=== PATIENT | female | born 1940 | race Caucasian/White ===

== ENCOUNTER 2018-09-19 11:49 | Inpatient (IN) | payer OTHER ==
[~2018-09-19] VITALS: Ht 154.9 cm; Wt 51.7 kg
[2018-09-19 12:01] VITALS: BP 98/56
--- NOTE | 2018-09-19 12:25 | NUR ---
ermd at bedside
--- NOTE | 2018-09-19 12:30 | NUR ---
BIB DAUGHTER WITH C/O LEAKING INDWELLING CATHETER X 1 DAY. PT DAUGHTER DENIES V/D/FEVER. PT HAS CHRONIC URINARY RETENTION. BED IN LOW POSTION, DAUGHTER AT BEDSIDE
[2018-09-19 14:22] LABS: APPEARANCE,URINE CLOUDY (CLEAR); BILIRUBIN,URINE NEGATIVE (NEGATIVE); BLOOD, URINE TRACE-L (NEGATIVE); COLOR,URINE YELLOW (YELLOW); LEUKOCYTE ESTERASE ,URINE 3+ (NEGATIVE); NITRITE, URINE NEGATIVE (NEGATIVE); UGLUCOSE TRACE (NEGATIVE)
[2018-09-19 14:30] LABS: RBC,URINE 0-5 /HPF (0-5); WBC,URINE 80-100 /HPF (0-5)
[2018-09-19] MEDS ORDERED: LEVOFLOXACIN 500 MG TAB PO ONE (14:35)
[2018-09-19] MEDS ORDERED: NACL 0.9% 500 ML IV SCH (14:39)
--- NOTE | 2018-09-19 14:48 | NUR ---
Dr. Loja evaluating patient at bedside.
[2018-09-19] MEDS ORDERED: ATOR40TA PO (14:58)
[2018-09-19] MEDS ORDERED: PAX20 PO (14:58)
[2018-09-19] MEDS ORDERED: CEPH250C16 PO (14:58)
[2018-09-19 15:05] LABS: BASOPHILS % (AUTO) 0.5 % (0.0-2.0); EOSINOPHILS # (AUTO) 0.1 K/uL (0-0.4); EOSINOPHILS % (AUTO) 1.8 % (0.0-4.0); HEMATOCRIT 38.3 % (36-48); HEMOGLOBIN 12.1 g/dL (12.0-16.0); LYMPHOCYTES # (AUTO) 2.7 K/uL (2.5-16.5); LYMPHOCYTES % (AUTO) 32.2 % (20.5-51.1); MEAN CORPUSCULAR HEMOGLOBIN 27 pg (27-31); MEAN CORPUSCULAR HGB CONC 32 g/dL (33-37); MEAN CORPUSCULAR VOLUME 86.2 fL (80-94); MONOCYTES # (AUTO) 0.7 K/uL (0.8-1.0); MONOCYTES % (AUTO) 8.8 % (1.7-9.3); NEUTROPHILS # (AUTO) 4.8 K/uL (1.8-7.7); NEUTROPHILS % (AUTO) 56.7 % (42.2-75.2); PLATELET COUNT (AUTO) 334 K/uL (140-450); RED BLOOD CELL COUNT(AUTO) 4.44 MIL/uL (4.20-5.40); RED CELL DISTRIBUTION WIDTH 14.8 % (11.6-13.7); WHITE BLOOD COUNT (AUTO) 8.5 K/uL (4.8-10.8)
[2018-09-19] MEDS ORDERED: DOCUSATE SODIUM 100 MG GELCAP PO PRN (15:05)
[2018-09-19] MEDS ORDERED: ACETAMINOPHEN 325 MG TAB PO PRN (15:05)
[2018-09-19] MEDS ORDERED: ONDANSETRON 4 MG/2 ML VIAL IM/IVP PRN (15:05)
[2018-09-19] MEDS ORDERED: APIX2.5 PO (15:07)
[2018-09-19] MEDS ORDERED: LISI10TA11 PO ×2 (15:07)
[2018-09-19] MEDS ORDERED: LEVO0.1T18 PO (15:07)
[2018-09-19] MEDS ORDERED: METF850T PO (15:07)
[2018-09-19 15:16] LABS: ANION GAP 13.5 (8-16); CHLORIDE 102 mmol/L (98-107); CREATININE 0.8 mg/dL (0.6-1.3); GLUCOSE 109 mg/dL (74-106); POTASSIUM 4.5 mmol/L (3.5-5.1); SODIUM SERUM 138 mmol/L (136-145); UREA NITROGEN, BLOOD 10 mg/dL (7-18)
[2018-09-19] MEDS ORDERED: DEXTROSE 50% 50 ML SYR IVP PRN (15:20)
[2018-09-19 15:22] LABS: ALBUMIN 3.2 g/dL (3.4-5.0); ASPARTATE AMINOTRANSFERASE 15 U/L (15-37); TOTAL BILIRUBIN 0.3 mg/dL (0.0-1.0)
[2018-09-19] MEDS ORDERED: LORA10TA19 PO (15:32)
[2018-09-19] MEDS ORDERED: PIOG15TA84 PO (15:32)
[2018-09-19] MEDS ORDERED: MAGN400T7 PO (15:32)
[2018-09-19] MEDS ORDERED: BACL10TA4 PO (15:32)
[2018-09-19] MEDS ORDERED: MONT10TA35 PO (15:32)
[2018-09-19 16:17] LABS: PROTHROMBIN TIME 9.9 secs (10.8-13.4)
[2018-09-19 16:28] LABS: MAGNESIUM 1.8 mg/dL (1.8-2.4); PHOSPHORUS 3.2 mg/dL (2.5-4.9); THYROID STIMULATING HORMONE 1.72 uIU/mL (0.34-3.74)
--- NOTE | 2018-09-19 16:30 | NUR ---
Patient will be admitted to care of Dr. Siegel. Admited to Med Surg. Will go to room 113 . Belongings list completed. Report to Kamryn alexandra.
--- NOTE | 2018-09-19 16:30 | NUR ---
RECEIVED BEDSIDE REPORT FROM ER NURSE FOR ADMISSION OF PATIENT DX WITH UTI. PT IS APHASIA, UNABLE TO ASSESS MENTAL STATUS. CURRENTLY ON ROOM AIR WITH RIGHT SIDED WEAKNESS EVIDENT. PT CURRENTLY HAS A LEFT WRIST 22 GAUGE IV, PATENT AND ASYMPTOMATIC. PT'S DAUGHTER AT BEDSIDE STATING PT IS PRIMARY SETSWANA SPEAKING, PT ABLE TO FOLLOW COMMANDS WITH EYES AND RESPOND TO MINIMAL BASIC COMMANDS SUCH OPENING MOUTH UPON REPEATED PROMPTING. ALL SAFETY MEASURES IN PLACE. PT MRSA SWAB COLLECTED AND FALL RISK AND ALLERGY BRACELETS PUT ON PT. LOPEZ CATHETER IN PLACE DRAINING CLEAR YELLOW URINE.
[2018-09-19] MEDS: NACL 0.9% 1,000 ML IV SCH (16:34)
[2018-09-19 16:35] VITALS: BP 145/59
--- NOTE | 2018-09-19 16:48 | NUR ---
DAUGHTER AT BEDSIDE STATES SHE NEEDS TO RUN SOME ERRANDS NOW BUT WILL BE BACK SOON. INFORMED DAUGHTER THAT WE NEED TO ASK HER QUESTIONS REGARDING PATIENT'S HEALTH HX FOR ADMISSION ASSESSMENT. DAUGHTER VERBALIZED UNDERSTANDING. WILL OBTAIN ADMISSION ASSESSMENT WHEN DAUGHTER IS BACK. PT IS APHASIC- UNABLE TO OBTAIN HEALTH HX FROM PT.
[2018-09-19] MEDS: BLOOD GLUCOSE MONITORING 1 DEV DEV FS SCH ×2 (16:49→21:09)
[2018-09-19] MEDS: metFORMIN 850 MG TAB PO SCH (16:49)
[2018-09-19] MEDS ORDERED: cefTRIAXone 1,000 MG VIAL ONE (17:57)
--- NOTE | 2018-09-19 18:01 | NUR ---
SCHEDULED ABX ADMINISTERED. DAUGHTER AT BEDSIDE FEEDING DINNER TO PATIENT. ASPIRATION PRECAUTIONS IN PLACE.
--- NOTE | 2018-09-19 18:21 | NUR ---
ASKED FUSION JUNCTURE GRINDER TO BRING SCD'S.
--- NOTE | 2018-09-19 19:18 | NUR ---
ENDORSED POC TO ASL INTERPRETER RN. PT IN STABLE CONDITION.
--- NOTE | 2018-09-19 20:00 | NUR ---
RECEIVED BEDSIDE REPORT FROM LIS STOUT. PT IS AAOX1. APHASIC PRIMARILY [place] SPEAKING. DAUGHTER VONNIE IS AT BEDSIDE. PT IS SMILING AND LAUGHING. IV ON L WRIST 22G IVF INFUSING PER ORDERS. SKIN IS INTACT. LOPEZ PLACED IN ER TODAY 09/19. PT INCONTINENT PT CLEANED AND CHANGED. HX STROKE WITH R SIDED WEAKNESS. SAFETY MEASURES ARE IN PLACE. PLAN OF CARE DISCUSSED WITH PT AND DAUGHTER. CALL LIGHT WITHIN REACH. WILL CONTINUE TO MONITOR.
[2018-09-19] MEDS: INSULIN LISPRO SLIDING SCALE 100 UNITS/ML VIAL SUBQ PRN (20:58)
[2018-09-19] MEDS: BACLOFEN 10 MG TAB PO SCH (21:02)
[2018-09-19] MEDS: APIXABAN 2.5 MG TAB PO SCH (21:09)
--- NOTE | 2018-09-19 21:09 | NUR ---
SCHEDULED MEDICATIONS WERE CRUSHED AND GIVEN WITH APPLE SAUCE. PATIENT TOLERATED WELL. ALL NEEDS MET AT THIS TIME. WILL CONTINUE TO MONITOR.
--- NOTE | 2018-09-19 22:30 | NUR ---
PATIENT IS SLEEPING COMFORTABLY IN BED. DAUGHTER AT BEDSIDE. SAFETY MEASURES ARE IN PLACE.
[2018-09-20] VITALS: BP 127/71
--- NOTE | 2018-09-20 00:03 | NUR ---
VITAL SIGNS ARE WITHIN NORMAL LIMITS. ALL NEEDS MET AT THIS TIME. DAUGHTER IS AT BEDSIDE.
--- NOTE | 2018-09-20 04:00 | NUR ---
PATIENT IS SLEEPING COMFORTABLY IN BED. NO S/S OF DISTRESS. ALL NEEDS MET AT THIS TIME. WILL CONTINUE TO MONITOR.
[2018-09-20] MEDS: BLOOD GLUCOSE MONITORING 1 DEV DEV FS SCH ×4 (05:08→20:04)
--- NOTE | 2018-09-20 05:47 | NUR ---
PATIENT HAS BEEN SCREENED AND CATEGORIZED LOW NUTRITION RISK. PATIENT WILL BE SEEN WITHIN 7 DAYS OF ADMISSION. 09/26/17 SHERRY MOREL MS, RDN
[2018-09-20] MEDS: LEVOTHYROXINE 0.1 MG TAB PO SCH (05:52)
--- NOTE | 2018-09-20 05:52 | NUR ---
SCHEDULED MEDICATION CRUSHED AND GIVEN WITH APPLE SAUCE. PT TOLERATED WELL.
[2018-09-20] MEDS: NACL 0.9% 1,000 ML IV SCH (06:33)
--- NOTE | 2018-09-20 07:28 | NUR ---
GAVE BEDSIDE REPORT TO RACHELLE STOUT. PT ENDORSED IN STABLE CONDITION.
--- NOTE | 2018-09-20 07:45 | NUR ---
RECEIVED HAND OFF REPORT FROM DIRECTOR OF ROOMS NURSE PT IS ASLEEP IN BED. PT APPEARS STABLE AND IN NO APPARENT DISTRESS, ALL SAFETY MEASURES ARE IN PLACE, WILL CONTINUE TO MONITOR.
[2018-09-20 08:00] VITALS: BP 110/49
[2018-09-20 08:59] LABS: BASOPHILS % (AUTO) 0.5 % (0.0-2.0); EOSINOPHILS # (AUTO) 0.2 K/uL (0-0.4); HEMATOCRIT 36.3 % (36-48); HEMOGLOBIN 11.6 g/dL (12.0-16.0); LYMPHOCYTES # (AUTO) 2.7 K/uL (2.5-16.5); LYMPHOCYTES % (AUTO) 34.6 % (20.5-51.1); MEAN CORPUSCULAR HEMOGLOBIN 27 pg (27-31); MEAN CORPUSCULAR HGB CONC 32 g/dL (33-37); MEAN CORPUSCULAR VOLUME 85.2 fL (80-94); MONOCYTES # (AUTO) 0.6 K/uL (0.8-1.0); MONOCYTES % (AUTO) 7.6 % (1.7-9.3); NEUTROPHILS # (AUTO) 4.3 K/uL (1.8-7.7); NEUTROPHILS % (AUTO) 55.3 % (42.2-75.2); PLATELET COUNT (AUTO) 290 K/uL (140-450); RED BLOOD CELL COUNT(AUTO) 4.26 MIL/uL (4.20-5.40); RED CELL DISTRIBUTION WIDTH 14.9 % (11.6-13.7); WHITE BLOOD COUNT (AUTO) 7.8 K/uL (4.8-10.8)
--- NOTE | 2018-09-20 09:05 | NUR ---
ADMINISTERED PT MEDICATIONS CRUSHED AND IN APPLESAUCE. PT IS AWAKE IN BED. PT APPEARS STABLE AND IN NO APPARENT DISTRESS. ALL SAFETY MEASURES ARE IN PLACE. WILL CONTINUE TO ASSESS.
[2018-09-20 09:07] LABS: ANION GAP 13.3 (8-16); CARBON DIOXIDE 26.2 mmol/L (21-32); CHLORIDE 104 mmol/L (98-107); CREATININE 0.7 mg/dL (0.6-1.3); GLUCOSE 136 mg/dL (74-106); POTASSIUM 4.5 mmol/L (3.5-5.1); SODIUM SERUM 139 mmol/L (136-145); UREA NITROGEN, BLOOD 12 mg/dL (7-18)
[2018-09-20 09:15] LABS: MAGNESIUM 1.6 mg/dL (1.8-2.4)
[2018-09-20] MEDS: ATORVASTATIN 20 MG TAB PO SCH (09:20)
[2018-09-20] MEDS: metFORMIN 850 MG TAB PO SCH ×2 (09:20→17:48)
[2018-09-20] MEDS: MONTELUKAST SODIUM 10 MG TAB PO SCH (09:20)
[2018-09-20] MEDS: PARoxetine 20 MG TAB PO SCH (09:21)
[2018-09-20] MEDS: LORATADINE 10 MG TAB PO SCH (09:21)
[2018-09-20] MEDS: LISINOPRIL 10 MG TAB PO SCH (09:21)
[2018-09-20] MEDS: LACTOBACILLUS RHAMNOSUS GG 1 EACH CAP PO SCH (09:22)
[2018-09-20] MEDS: MAGNESIUM OXIDE 400 MG TAB PO SCH (09:22)
[2018-09-20] MEDS: BACLOFEN 10 MG TAB PO SCH ×2 (09:22→19:54)
[2018-09-20] MEDS: APIXABAN 2.5 MG TAB PO SCH ×2 (09:24→20:03)
[2018-09-20 09:41] LABS: CHOL/HDL RATIO 2.3 (1-4.5)
--- NOTE | 2018-09-20 11:15 | NUR ---
FREQUENT ROUNDING PT IS STABLE AND IN NO APPARENT DISTRESS. AT BEDSIDE. ALL SAFETY MEASURES ARE IN PLACE. WILL CONTINUE TO MONITOR,
[2018-09-20] MEDS: MAG SULF 2000 MG/WATER PREMIX 100 ML IV SCH ×2 (12:47→15:47)
[2018-09-20] MEDS: INSULIN LISPRO SLIDING SCALE 100 UNITS/ML VIAL SUBQ PRN ×3 (12:57→20:03)
--- NOTE | 2018-09-20 13:20 | NUR ---
FREQUENT ROUNDING PT IS STABLE AND IN NO APPARENT DISTRESS ALL SAFETY MEASURES ARE IN PLACE WILL CONTINUE TO MONITOR.
[2018-09-20 16:00] VITALS: BP 153/66
--- NOTE | 2018-09-20 16:05 | NUR ---
FREQUENT ROUNDING PT IS STABLE AND IN NO APPARENT DISTRESS ALL SAFETY MEASURES ARE IN PLACE WILL CONTINUE TO MONITOR.
--- NOTE | 2018-09-20 19:20 | NUR ---
ENDORSED PATIENT TO CHURCH COMMUNICATIONS ADMINISTRATOR NURSE PT IS STABLE AND IN NO APPARENT DISTRESS, ALL SAFETY MEASURES ARE IN PLACE.
--- NOTE | 2018-09-20 19:21 | NUR ---
RECEIVED BEDSIDE REPORT FROM RACHELEL STOUT. PT IS AAOX1. APHASIC PRIMARILY [place] SPEAKING. PT IS SMILING AND LAUGHING. IV ON L WRIST 22G IVF INFUSING PER ORDERS. SKIN IS INTACT. LOPEZ IN PLACED DRAINING CLEAR YELLOW URINE. HX STROKE WITH R SIDED WEAKNESS. SAFETY MEASURES ARE IN PLACE. SCD ON. PLAN OF CARE DISCUSSED BED ALARM ON. CALL LIGHT WITHIN REACH. WILL CONTINUE TO MONITOR.
[2018-09-20] MEDS: MELATONIN 3 MG TAB PO SCH (20:03)
--- NOTE | 2018-09-20 20:03 | NUR ---
SCHEDULED MEDICATIONS CRUSHED AND GIVEN WITH APPLE SAUCE. PT TOLERATED WELL. NO S/S OF DISTRESS NOTED. ALL SAFETY MEASURES ARE IN PLACE. WILL CONTINUE TO MONITOR.
--- NOTE | 2018-09-20 22:00 | NUR ---
PATIENT IS SLEEPING COMFORTABLY IN BED. SAFETY MEASURES ARE IN PLACE. WILL CONTINUE TO MONITOR
[2018-09-21] VITALS: BP 125/55
--- NOTE | 2018-09-21 | NUR ---
VITAL SIGNS ARE WITHIN NORMAL LIMITS. PT IS RESTING COMFORTABLY IN BED. NO S/S OF DISTRESS. ALL SAFETY MEASURES ARE IN PLACE. WILL CONTINUE TO MONITOR.
--- NOTE | 2018-09-21 02:15 | NUR ---
PATIENT IS SLEEPING COMFORTABLY IN BED. RESPIRATIONS ARE EQUAL AND UNLABORED. HOB ELEVATED. SAFETY MEASURES ARE IN PLACE. WILL CONTINUE TO MONITOR.
--- NOTE | 2018-09-21 04:30 | NUR ---
LOPEZ CATH CARE PROVIDED. PT WAS CLEANED AND REPOSITION FOR COMFORT NO S/S OF DISTRESS NOTED. SAFETY MEASURES ARE IN PLACE. HOB ELEVATED. WILL CONTINUE TO MONITOR.
[2018-09-21] MEDS: BLOOD GLUCOSE MONITORING 1 DEV DEV FS SCH ×4 (05:07→20:55)
[2018-09-21] MEDS: LEVOTHYROXINE 0.1 MG TAB PO SCH (05:38)
[2018-09-21] MEDS: NACL 0.9% 1,000 ML IV SCH (05:38)
--- NOTE | 2018-09-21 07:30 | NUR ---
GAVE BEDSIDE REPORT TO DAY SHIFT RN. PT ENDORSED IN STABLE CONDITION.
--- NOTE | 2018-09-21 07:31 | NUR ---
RECEIVED BEDSIDE REPORT FROM FOOD MANAGER NURSE. PATIENT IS AWAKE. APHASIC. PATIENT ABLE TO NOD YES AND NO. PATIENT IS BEDBOUND. SKIN INTACT. IV ON L WRIST NS AT 30. CLEAN, DRY AND INTACT. LOPEZ IN PLACE. INCONTINENT. FALL RISK PRECAUTIONS, ASPIRATION PRECAUTIONS IN PLACE. BED IN LOW POSITION. CALL LIGHT WITHIN REACH. WILL CONTINUE TO MONITOR THE PATIENT
[2018-09-21 08:00] VITALS: BP 128/64
--- NOTE | 2018-09-21 08:22 | NUR ---
PATIENT HAS BEEN RE-SCREENED AND CATEGORIZED MODERATE RISK. PT WILL BE SEEN WITHIN 3-5 DAYS FROM ADMISSION. 09/22/18-09/24/[address]
[2018-09-21 08:43] LABS: BASOPHILS # (AUTO) 0.1 K/uL (0.00-0.22); BASOPHILS % (AUTO) 0.8 % (0.0-2.0); EOSINOPHILS # (AUTO) 0.3 K/uL (0-0.4); EOSINOPHILS % (AUTO) 3.6 % (0.0-4.0); HEMATOCRIT 32.8 % (36-48); HEMOGLOBIN 10.6 g/dL (12.0-16.0); LYMPHOCYTES # (AUTO) 2.7 K/uL (2.5-16.5); LYMPHOCYTES % (AUTO) 37.1 % (20.5-51.1); MEAN CORPUSCULAR HEMOGLOBIN 28 pg (27-31); MEAN CORPUSCULAR HGB CONC 32 g/dL (33-37); MEAN CORPUSCULAR VOLUME 84.9 fL (80-94); MONOCYTES # (AUTO) 0.5 K/uL (0.8-1.0); MONOCYTES % (AUTO) 7.2 % (1.7-9.3); NEUTROPHILS # (AUTO) 3.7 K/uL (1.8-7.7); NEUTROPHILS % (AUTO) 51.3 % (42.2-75.2); PLATELET COUNT (AUTO) 300 K/uL (140-450); RED BLOOD CELL COUNT(AUTO) 3.86 MIL/uL (4.20-5.40); RED CELL DISTRIBUTION WIDTH 14.8 % (11.6-13.7); WHITE BLOOD COUNT (AUTO) 7.1 K/uL (4.8-10.8)
[2018-09-21] MEDS: LORATADINE 10 MG TAB PO SCH (09:51)
[2018-09-21] MEDS: MAGNESIUM OXIDE 400 MG TAB PO SCH (09:51)
[2018-09-21] MEDS: LACTOBACILLUS RHAMNOSUS GG 1 EACH CAP PO SCH (09:51)
[2018-09-21] MEDS: PARoxetine 20 MG TAB PO SCH (09:52)
[2018-09-21] MEDS: ATORVASTATIN 20 MG TAB PO SCH (09:52)
[2018-09-21] MEDS: BACLOFEN 10 MG TAB PO SCH ×2 (09:52→20:57)
[2018-09-21] MEDS: LISINOPRIL 10 MG TAB PO SCH (09:52)
[2018-09-21] MEDS: metFORMIN 850 MG TAB PO SCH ×2 (09:52→17:18)
[2018-09-21] MEDS: MONTELUKAST SODIUM 10 MG TAB PO SCH (09:52)
[2018-09-21] MEDS: APIXABAN 2.5 MG TAB PO SCH ×2 (10:03→20:57)
--- NOTE | 2018-09-21 10:03 | NUR ---
CRUSHED AND ADMINISTERED MEDS. PATIENT TOLERATED WELL. EDUCATED ON SIDE EFFECTS BUT PATIENT APHASIC. BED IN LOW POSITION. STORE OPERATIONS ASSOCIATE IN THE ROOM TO CLEAN PATIENT. WILL CONTINUE TO MONITOR
[2018-09-21] MEDS: INSULIN LISPRO SLIDING SCALE 100 UNITS/ML VIAL SUBQ PRN ×2 (12:46→20:56)
--- NOTE | 2018-09-21 12:46 | NUR ---
ADMINISTERED MEDS. EDUCATED PATIENT ON SIDE EFFECTS. SHE IS APHASIC. PATIENT EATING AND BEING FED BY BLOOD BANK LABORATORY TECHNICIAN. WILL CONTINUE TO MONITOR
--- NOTE | 2018-09-21 13:20 | NUR ---
PATIENT IS SLEEPING. NO SIGNS OF DISTRESS. BED IN LOW POSITION. CALL LIGHT WITHIN REACH. WILL CONTINUE TO MONITOR
[2018-09-21 13:47] LABS: ANION GAP 14.1 (8-16); CARBON DIOXIDE 25.3 mmol/L (21-32); CHLORIDE 105 mmol/L (98-107); CREATININE 0.6 mg/dL (0.6-1.3); GLUCOSE 127 mg/dL (74-106); POTASSIUM 4.4 mmol/L (3.5-5.1); SODIUM SERUM 140 mmol/L (136-145); UREA NITROGEN, BLOOD 13 mg/dL (7-18)
[2018-09-21 13:52] LABS: MAGNESIUM 2.3 mg/dL (1.8-2.4); PHOSPHORUS 2.7 mg/dL (2.5-4.9)
--- NOTE | 2018-09-21 15:10 | NUR ---
PATIENT IS SLEEPING. DAUGHTER AT BEDSIDE. WILL CONTINUE TO MONITOR
[2018-09-21 16:00] VITALS: BP 100/40
--- NOTE | 2018-09-21 17:28 | NUR ---
CRUSHED ADMINISTERED MEDS AND PRN CONSTIPATION MED. EDUCATED ON SIDE EFFECTS. PATIENT IS APHASIC. PATIENT TOLERATED WELL. WILL CONTINUE TO MONITOR THE PATIENT.
--- NOTE | 2018-09-21 19:05 | NUR ---
GAVE BEDSIDE REPORT TO PROFESSOR OF SOCIOLOGY NURSE. PATIENT ENDORSED IN STABLE CONDITION
--- NOTE | 2018-09-21 19:06 | NUR ---
RECEIVED REPORT FROM DAY SHIFT NURSE BLACK-RN AT BEDSIDE. PT RESTING IN BED, AOX4-APHASIC, ON ROOM AIR WITH LEFT WRIST #22G RUNNING NS @10ML/HR. RIGHT SIDED WEAKNESS, ON BEDREST. LOPEZ CATHETER IN PLACE SINCE 09/19/2018- PLACED IN ER. SKIN INTACT. DISCUSSED PLAN OF CARE AND PT VERBALIZED UNDERSTANDING. NO S/S OF RESPIRATORY DISTRESS OR DISCOMFORT NOTED AT THIS TIME. BED IN LOWEST POSITION, BED BREAKS ON, BOTH SIDE RAILS UP AND BOTH FALL AND ASPIRATION PRECAUTIONS IN PLACE. BEDSIDE TABLE AND CALL LIGHT ARE WITHIN REACH. WILL CONTINUE TO MONITOR.
[2018-09-21 20:00] VITALS: BP 118/50
--- NOTE | 2018-09-21 20:00 | NUR ---
VITAL SIGNS TAKEN AND TOLERATED WELL. BLOOD GLUCOSE 183- WILL ADMINISTER INSULIN COVERAGE. NO S/S OF RESPIRATORY DISTRESS OR DISCOMFORT NOTED AT THIS TIME. WILL CONTINUE TO MONITOR.
[2018-09-21] MEDS: MELATONIN 3 MG TAB PO SCH (20:57)
--- NOTE | 2018-09-21 20:57 | NUR ---
SCHEDULED MEDICATION GIVEN AND TOLERATED WELL. INSULIN COVERAGE GIVEN AND TOLERATED WELL. NO S/S OF RESPIRATORY DISTRESS OR DISCOMFORT NOTED AT THIS TIME. WILL CONTINUE TO MONITOR.
--- NOTE | 2018-09-22 | NUR ---
VITAL SIGNS TAKEN AND TOLERATED WELL. NO S/S OF RESPIRATORY DISTRESS OR DISCOMFORT NOTED AT THIS TIME. WILL CONTINUE TO MONITOR.
--- NOTE | 2018-09-22 02:00 | NUR ---
PT SLEEPING IN BED. NO S/S OF RESPIRATORY DISTRESS OR DISCOMFORT NOTED AT THIS TIME. WILL CONTINUE TO MONITOR.
--- NOTE | 2018-09-22 04:00 | NUR ---
PT CONTINUES TO SLEEP IN BED. NO S/S OF RESPIRATORY DISTRESS OR DISCOMFORT NOTED AT THIS TIME. WILL CONTINUE TO MONITOR.
--- NOTE | 2018-09-22 06:00 | NUR ---
BLOOD GLUCOSE 119- NO INSULIN COVERAGE. NO S/S OF RESPIRATORY DISTRESS OR DISCOMFORT NOTED AT THIS TIME. WILL CONTINUE TO MONITOR.
[2018-09-22] MEDS: BLOOD GLUCOSE MONITORING 1 DEV DEV FS SCH ×2 (06:21→11:30)
[2018-09-22] MEDS: LEVOTHYROXINE 0.1 MG TAB PO SCH (06:21)
--- NOTE | 2018-09-22 06:21 | NUR ---
SCHEDULED MEDICATION SYNTHROID GIVEN AND TOLERATED WELL. NO S/S OF RESPIRATORY DISTRESS OR DISCOMFORT NOTED AT THIS TIME. WILL CONTINUE TO MONITOR.
--- NOTE | 2018-09-22 07:14 | NUR ---
ENDORSED PT CARE TO DAY SHIFT NURSE BLACK-RN FOR CONTINUITY OF CARE.
--- NOTE | 2018-09-22 07:15 | NUR ---
RECEIVED BEDSIDE SHIFT REPORT FROM NIGHT NURSE. PT STABLE WITH NO OBVIOUS SIGNS OF DISTRESS AND NO REQUESTS AT THIS TIME. PT LEFT WRIST IV SITE PATENT AND ASYMPTOMATIC, AND INFUSING NS AT 10ML/HR. PT APHASIC, BUT ABLE TO FOLLOW SIMPLE VERBAL COMMANDS FOR EYE FOLLOWING AND MOUTH OPENING. SKIN INTACT LUNGS CLEAR THROUGHOUT ALL LOBES.
[2018-09-22 07:25] LABS: BASOPHILS # (AUTO) 0.1 K/uL (0.00-0.22); BASOPHILS % (AUTO) 0.6 % (0.0-2.0); EOSINOPHILS # (AUTO) 0.1 K/uL (0-0.4); EOSINOPHILS % (AUTO) 1.2 % (0.0-4.0); HEMATOCRIT 37.9 % (36-48); HEMOGLOBIN 12.2 g/dL (12.0-16.0); LYMPHOCYTES # (AUTO) 3.4 K/uL (2.5-16.5); MEAN CORPUSCULAR HEMOGLOBIN 27 pg (27-31); MEAN CORPUSCULAR HGB CONC 32 g/dL (33-37); MEAN CORPUSCULAR VOLUME 84.9 fL (80-94); MONOCYTES # (AUTO) 0.5 K/uL (0.8-1.0); MONOCYTES % (AUTO) 5.8 % (1.7-9.3); NEUTROPHILS # (AUTO) 5.2 K/uL (1.8-7.7); NEUTROPHILS % (AUTO) 56.4 % (42.2-75.2); PLATELET COUNT (AUTO) 305 K/uL (140-450); RED BLOOD CELL COUNT(AUTO) 4.46 MIL/uL (4.20-5.40); RED CELL DISTRIBUTION WIDTH 14.9 % (11.6-13.7); WHITE BLOOD COUNT (AUTO) 9.3 K/uL (4.8-10.8)
[2018-09-22] MEDS: NACL 0.9% 1,000 ML IV SCH (07:41)
[2018-09-22 08:00] VITALS: BP 143/78
[2018-09-22 08:08] LABS: ANION GAP 13.8 (8-16); CARBON DIOXIDE 26.3 mmol/L (21-32); CHLORIDE 104 mmol/L (98-107); CREATININE 0.7 mg/dL (0.6-1.3); GLUCOSE 124 mg/dL (74-106); POTASSIUM 4.1 mmol/L (3.5-5.1); SODIUM SERUM 140 mmol/L (136-145); UREA NITROGEN, BLOOD 14 mg/dL (7-18)
[2018-09-22 08:21] LABS: MAGNESIUM 1.8 mg/dL (1.8-2.4); PHOSPHORUS 3.2 mg/dL (2.5-4.9)
[2018-09-22] MEDS: ATORVASTATIN 20 MG TAB PO SCH (08:58)
[2018-09-22] MEDS: LACTOBACILLUS RHAMNOSUS GG 1 EACH CAP PO SCH (08:59)
[2018-09-22] MEDS: APIXABAN 2.5 MG TAB PO SCH (09:00)
[2018-09-22] MEDS ORDERED: TUBERCULIN 5 TU/0.1 ML VIAL ID SCH (09:00)
[2018-09-22] MEDS: PARoxetine 20 MG TAB PO SCH (09:01)
[2018-09-22] MEDS: metFORMIN 850 MG TAB PO SCH (09:01)
[2018-09-22] MEDS: MAGNESIUM OXIDE 400 MG TAB PO SCH (09:02)
[2018-09-22] MEDS: LISINOPRIL 10 MG TAB PO SCH (09:02)
[2018-09-22] MEDS: BACLOFEN 10 MG TAB PO SCH (09:02)
[2018-09-22] MEDS: MONTELUKAST SODIUM 10 MG TAB PO SCH (09:03)
[2018-09-22] MEDS: LORATADINE 10 MG TAB PO SCH (09:03)
--- NOTE | 2018-09-22 09:59 | NUR ---
ADMINISTERED PPD RIGHT FOREARM, PT TOLERATED WELL. CURRENTLY HAS NO SIGNS OF ACUTE DISTRESS.
[2018-09-22] MEDS ORDERED: [UNRECOGNIZED DRUG - OTHER] (10:04)
[2018-09-22] MEDS ORDERED: TRIM100T2 PO (10:04)
--- NOTE | 2018-09-22 10:30 | NUR ---
SPOKE TO VONNIE AT [phone], PATIENTS DAUGHTER, SHE SAID SHE WILL EMERGENCY ROOM PHYSICIAN THE PATIENT AROUND 1130. SPOKE TO YOAV FROM [facility] AT [phone], SHE IS AWARE THAT THE PATIENT WILL BE DISCHARGED AND GOING BACK AROUND 1130. GAVE HER REPORT AND CALL BACK NUMBER
--- NOTE | 2018-09-22 11:00 | NUR ---
PT SLEEPING IN BED RESTING WITH NO SIGNS OF OBVIOUS DISTRESS. BREATHING EQUAL AND UNLABORED.
[2018-09-22] MEDS: INSULIN LISPRO SLIDING SCALE 100 UNITS/ML VIAL SUBQ PRN (12:32)
--- NOTE | 2018-09-22 13:25 | NUR ---
EDUCATED ON DISEASE PROCESS, ABN S/SX, WHEN TO GO TO THE ER, LOPEZ CARE, FOLLOW UP W PCP, EDUCATED ON MEDS AND GAVE PRESCRIPTION, PNA AND FLU VACCINES ARE UP TO DATE. GAVE COPY OF XRAY ORDERED BY DR HENDRICKSON, EXPLAINED TO DAUGHTER ABOUT THE NEED TO READ PPD 48-72 HRS FROM TIME ADMINISTERED WHICH WAS 09/22/18 0959. PATIENT APHASIC BUT DAUGHTER VERBALIZED UNDERSTANDING AND SIGNED PAPERWORK. ID BANDS REMOVED, IV REMOVED, TIP INTACT. PATIENT LEFT IN STABLE CONDITION
== END 2018-09-22 13:25 | DRG 699 ==
LOC: MED 11:49 → MTU 15:01
PROVIDERS: ADMIT General Practice; ATTEND General Practice
DX: T83.511A Infection and inflammatory reaction due to indwelling urethral catheter, initial encounter (principal); E44.0 Moderate protein-calorie malnutrition; I69.351 Hemiplegia and hemiparesis following cerebral infarction affecting right dominant side; N39.0 Urinary tract infection, site not specified; D64.9 Anemia, unspecified; E83.42 Hypomagnesemia; R31.9 Hematuria, unspecified; Z68.21 Body mass index [BMI] 21.0-21.9, adult; E03.9 Hypothyroidism, unspecified; F32.9 Major depressive disorder, single episode, unspecified; Z66 Do not resuscitate; R13.10 Dysphagia, unspecified; I10 Essential (primary) hypertension; E11.65 Type 2 diabetes mellitus with hyperglycemia; Z88.2 Allergy status to sulfonamides; Z79.899 Other long term (current) drug therapy; Z83.3 Family history of diabetes mellitus; Z82.49 Family history of ischemic heart disease and other diseases of the circulatory system; T83.031A Leakage of indwelling urethral catheter, initial encounter
CPT/HCPCS: 36415; 51702; 71045; 80048; 80053; 81001; 82150; 82948; 83036; 83605; 83690; 83735; 83880; 84100; 84443; 84484; 85025; 85610; 85730; 87040; 87081; 87086; 93005; 96360; 99285; J0696; J1815; J3475; J7030; J7060; Q0092

== ENCOUNTER 2020-03-21 21:53 | Inpatient (IN) | payer OTHER, MEDICARE, SELFPAY ==
[~2020-03-21] VITALS: Ht 154.9 cm; Wt 62.1 kg
[~2020-03-21 21:53] MED LIST: APIX2.5 PO; ATOR40TA PO; BACL10TA4 PO; LEVO0.1T18 PO; LISI10TA11 PO; LORA10TA19 PO; MAGN400T7 PO; METF850T PO; MONT10TA35 PO; PAX20 PO; PIOG15TA84 PO; TRIM100T2 PO
--- NOTE | 2020-03-21 21:54 | NUR ---
PT BIB AMBULANCE AND TAKEN TO ER BED 2.
--- NOTE | 2020-03-21 21:54 | NUR ---
80 Y/O NON VERBAL FEMALE BIBA FROM [facility] FOR FEVER. PER [facility] PT WAS BROUGHT TO [facility] PER FAMILY'S REQUEST. PT WAS RELEASED FROM [facility] A FEW DAYS AGO WITH DX OF KIDNEY INFECTION. UPON ARRIVAL PT WAS A&O X2, VSS, R/R EQUAL, AND UNLABORED, SPO2 96% RA, TEMP: 97.9. PT HAS PATENT SUPRAPUBIC LOPEZ CATHETER IN PLACE. NO COUGH, SOB, FEVER, CHILLS, NAUSEA, VOMITING, OR DISTRESS NOTED. PT PLACED ON BEDSIDE MONITOR. HOB ELEVATED, SIDE RAIL X2, BED IN LOW POSITION, WILL CONTINUE TO MONITOR. PMH: DMII; HTN; CVA; HYPOTHYROIDISM; HYPERLIPIDEMIA ALLERGY: SULFA
--- NOTE | 2020-03-21 22:03 | NUR ---
Dr. Landry examining patient.
--- NOTE | 2020-03-21 22:09 | NUR ---
FAMILY AT BEDSIDE
[2020-03-21] MEDS ORDERED: NACL 0.9% 500 ML IV ONE (22:10)
[2020-03-21 22:49] LABS: BASOPHILS # (AUTO) 0.1 K/uL (0.00-0.22); BASOPHILS % (AUTO) 0.9 % (0.0-2.0); EOSINOPHILS # (AUTO) 0.2 K/uL (0-0.4); EOSINOPHILS % (AUTO) 2.1 % (0.0-4.0); HEMOGLOBIN 10.9 g/dL (12.0-16.0); LYMPHOCYTES # (AUTO) 3.1 K/uL (2.5-16.5); LYMPHOCYTES % (AUTO) 27.5 % (20.5-51.1); MEAN CORPUSCULAR HEMOGLOBIN 27 pg (27-31); MEAN CORPUSCULAR HGB CONC 32 g/dL (33-37); MEAN CORPUSCULAR VOLUME 84.7 fL (80-94); MONOCYTES # (AUTO) 0.8 K/uL (0.8-1.0); MONOCYTES % (AUTO) 6.9 % (1.7-9.3); NEUTROPHILS # (AUTO) 7.1 K/uL (1.8-7.7); NEUTROPHILS % (AUTO) 62.6 % (42.2-75.2); PLATELET COUNT (AUTO) 424 K/uL (140-450); RED BLOOD CELL COUNT(AUTO) 4.01 MIL/uL (4.20-5.40); RED CELL DISTRIBUTION WIDTH 14.9 % (11.6-13.7); WHITE BLOOD COUNT (AUTO) 11.3 K/uL (4.8-10.8)
--- NOTE | 2020-03-21 22:54 | NUR ---
PT SITTING QUIETLY IN BED. LOOKING AT DAUGHTER, AND SMILING, AND LAUGHING. VSS, R/R EQUAL, AND UNLABORED. HOB ELEVATED, SIDE RAIL X2, BED IN LOW POSITION, WILL CONTINUE TO MONITOR
[2020-03-21 23:05] LABS: ALBUMIN 2.9 g/dL (3.4-5.0); ANION GAP 14.7 (8-16); ASPARTATE AMINOTRANSFERASE 20 U/L (15-37); CARBON DIOXIDE 25.5 mmol/L (21-32); CHLORIDE 102 mmol/L (98-107); GLUCOSE 168 mg/dL (74-106); POTASSIUM 4.2 mmol/L (3.5-5.1); SODIUM SERUM 138 mmol/L (136-145); TOTAL BILIRUBIN 0.2 mg/dL (0.0-1.0); UREA NITROGEN, BLOOD 11 mg/dL (7-18)
[2020-03-21 23:09] VITALS: BP 146/64
--- NOTE | 2020-03-21 23:16 | NUR ---
lactic acid 4.[address] Landry.
[2020-03-21] MEDS ORDERED: NACL 0.9% 1,500 ML IV ONE (23:20)
--- NOTE | 2020-03-21 23:20 | NUR ---
URINE SAMPLE HANDED TO THERESE SOAPING MACHINE BACK TENDER.
[2020-03-21 23:22] LABS: PROTHROMBIN TIME 10.2 secs (10.8-13.4)
[2020-03-21 23:31] LABS: APPEARANCE,URINE CLEAR (CLEAR); BILIRUBIN,URINE NEGATIVE (NEGATIVE); BLOOD, URINE 1+ (NEGATIVE); COLOR,URINE YELLOW (YELLOW); LEUKOCYTE ESTERASE ,URINE TRACE (NEGATIVE); NITRITE, URINE NEGATIVE (NEGATIVE); UGLUCOSE NEGATIVE (NEGATIVE)
[2020-03-21] MEDS ORDERED: LEVOFLOXACIN 500 MG/D5W PREMIX 100 ML IV ONE (23:35)
--- NOTE | 2020-03-21 23:40 | NUR ---
EKG PERFORMED AT BEDSIDE. EKG READS SINUS RHYTHM @ 75
[2020-03-21 23:50] LABS: RBC,URINE 11-20 (MOD) /HPF (0-5); WBC,URINE 0-5 /HPF (0-5)
--- NOTE | 2020-03-21 23:57 | NUR ---
PT APPEARS TO BE SLEEPING. DAUGHTER AT BEDSIDE. VSS, R/R EQUAL, AND UNLABORED. HOB ELEVATED, SIDE RAIL X2, BED IN LOW POSITION, WILL CONTINUE TO MONITOR
[2020-03-22] MEDS ORDERED: CALC1WAF PO (00:15)
[2020-03-22] MEDS ORDERED: ACETAMINOPHEN 325 MG TAB PO PRN (00:25)
[2020-03-22] MEDS ORDERED: INSULIN LISPRO SLIDING SCALE 100 UNITS/ML VIAL SUBQ PRN (00:25)
[2020-03-22] MEDS: NACL 0.9% 1,000 ML IV SCH ×2 (00:25→17:00)
[2020-03-22] MEDS ORDERED: ONDANSETRON 4 MG/2 ML VIAL IM/IVP PRN (00:25)
[2020-03-22] MEDS ORDERED: DOCUSATE SODIUM 100 MG GELCAP PO PRN (00:25)
[2020-03-22] MEDS ORDERED: HYDROcodone/APAP 7.5/325 MG 1 TAB PO PRN (00:25)
[2020-03-22] MEDS ORDERED: POTASSIUM CHLORIDE 10 MEQ TABER PO PRN (00:25)
[2020-03-22] MEDS ORDERED: DEXTROSE 50% 50 ML SYR IVP PRN (00:25)
--- NOTE | 2020-03-22 00:28 | NUR ---
Patient appears to be resting comfortably in bed. Vital Signs within normal limits. Respirations even and unlabored.
--- NOTE | 2020-03-22 01:00 | NUR ---
Patient will be admitted to care of DR. LIND. Admited to TELE. Will go to room 126 B. Belongings list completed. Report to GIRISH HERNANDEZ.
--- NOTE | 2020-03-22 01:30 | NUR ---
PT UP TO FLOOR ON [facility] AND WAS TRANSFERRED TO ROOM 126 AND BED B. REPORT GIVEN OVER THE PHONE BY FLORES STOUT ER NURSE. DAUGHTER AT HER SIDE. DAUGHTER VONNIE ANSWERED ADMISSION QUESTIONS AND THEN LEFT. PT CONTINUES ON ORDERED ER BOLUS. AND LEVAQUIN WHICH WAS ORDERED IN ER WAS HUNG. PT HAS 24 GUAGE ON R HAND INTACT AND ASYMPTOMATIC. PT IS AOX1, APHASIAC WITH BUE CONTRACTIONS AND LOWER EXTREMITIES WEAKNESS. PT SKIN INTACT AND ALL ORDERED PRECAUTIONS IN PLACE. ADMISSION V/S FOLLOWS: T 97.6 P 76 R 18 B/P 97/61 02 97% ON ROOM AIR. NO S/S OF PAIN OR DISTRESS NOTED.
[2020-03-22] MEDS ORDERED: LEVOFLOXACIN 500 MG/D5W PREMIX 100 ML IV ONE (01:51)
[2020-03-22 02:39] LABS: CHOL/HDL RATIO 2.9 (1-4.5); FREE T4 (FREE THYROXINE) 1.24 ng/dL (0.76-1.46); MAGNESIUM 1.6 mg/dL (1.8-2.4); PHOSPHORUS 3.7 mg/dL (2.5-4.9); THYROID STIMULATING HORMONE 5.8 uIU/mL (0.34-3.74)
[2020-03-22] MEDS: PIPERACILLIN/TAZOBACTAM 2.25 GM in DEXTROSE 5% 50 ML IV SCH ×3 (05:00→20:12)
--- NOTE | 2020-03-22 05:30 | NUR ---
JOHANA HUNG AND RUNNING ORDERED.
--- NOTE | 2020-03-22 06:46 | NUR ---
PT GIVEN ORDERED SYNTHROID. FINGERSTICK IS 137, NO HUMALOG COVERAGE NEEDED. ALL ORDERED PRECAUTIONS IN PLACE.
[2020-03-22] MEDS ORDERED: PIPERACILLIN/TAZOBACTAM 2.25 GM VIAL IV ONE (06:47)
[2020-03-22] MEDS: LEVOTHYROXINE 0.1 MG TAB PO SCH (07:01)
--- NOTE | 2020-03-22 07:15 | NUR ---
RECEIVED REPORT FROM PM RN FOR CONTINUITY OF CARE. PT IS STABLE IN NO DISTRESS. WILL CONTINUE WITH POC.
[2020-03-22] MEDS ORDERED: lisinopriL 10 MG TAB PO SCH (08:00)
[2020-03-22] MEDS: BLOOD GLUCOSE MONITORING 1 DEV DEV FS SCH ×4 (08:02→20:11)
[2020-03-22] MEDS: ATORVASTATIN 20 MG TAB PO SCH (08:30)
[2020-03-22] MEDS: PARoxetine 20 MG TAB PO SCH (08:35)
--- NOTE | 2020-03-22 08:41 | NUR ---
PATIENT HAS BEEN SCREENED AND CATEGORIZED MODERATE NUTRITION RISK. PATIENT WILL BE SEEN WITHIN 3-5 DAYS OF ADMISSION. 03/24/20 03/26/[address]
--- NOTE | 2020-03-22 09:20 | NUR ---
PT LAYING IN BED APHASIC UNABLE TO ASSESS ORIENTATION. PT IS NOT ABLE TO COMMUNICATE. PT HAS CONTRACTIONS TO UPPER EXTREMITIES AND IS BED BOUND. LUNG SOUNDS CLEAR, ABD IS ROUND, SOFT AND NONTENDER. HAS SUPRAPUBIC CATH DRAINING CLEAR YELLOW URINE. TOLERATED PO MEDICATION WITH NO ISSUES. V/S: 98.3, 80, 17, 152/69, 95% RA FLACC-[address] WILL CONTINUE WITH POC.
[2020-03-22] MEDS: BACLOFEN 10 MG TAB PO SCH ×2 (09:24→20:12)
[2020-03-22] MEDS: MAGNESIUM OXIDE 400 MG TAB PO SCH (09:24)
[2020-03-22] MEDS: MONTELUKAST SODIUM 10 MG TAB PO SCH (09:24)
[2020-03-22] MEDS: LORATADINE 10 MG TAB PO SCH (09:24)
[2020-03-22] MEDS: APIXABAN 2.5 MG TAB PO SCH ×2 (09:26→20:12)
--- NOTE | 2020-03-22 10:30 | NUR ---
PROVISION OF CARE PROVIDED. IN NO DISTRESS. REMAINS ON RA WITH SPO2 95%. ALL NEEDS MET.
--- NOTE | 2020-03-22 10:43 | NUR ---
DISCHARGE PLANNING: THIS IS AN 80 Y/O FEMALE PATIENT FROM [facility], WHO WAS BIBA DUE TO FEVER AND KIDNEY INFECTION. PAST MEDICAL HISTORY INCLUDE CEREBROVASCULAR ACCIDENT, DIABETES, HTN. INITIAL DIAGNOSIS OF LACTIC ACIDOSIS. CURRENT LABS INCLUDE WBC 11.3, H/H 10.9/34.0, NA/K 138/4.2, BUN/CREA 11/1.0, LACTIC ACID 4.0, ALB 2.9. RAPID COVID TEST PENDING. ON ZOSYN. UROLOGY CONSULT IN PLACE AND SEEN - KEEP LOPEZ CATHETER IN PLACE, RANAL AND ABDOMINAL US, EMPIRIC ANTIBIOTICS, URINE CS. RENAL US PENDING. URINE AND BLOOD CS PENDING. DC PLAN PENDING ON PATIENT'S RESPONSE TO TREATMENT. Addendum: 03/23/20 at 1456 by Lynnette Gamboaeda CM DC MATERIALS SCHEDULER: FAXED ORDER FOR WHEEL CHAIR TO [facility] WILL FOLLOW UP. Addendum: 03/23/20 at 1559 by Lynnette Mayeda CM ASIF GOLD: SPOKE TO REJI THEY HAVE RECEIVED ORDER. THEY ARE REVIEWING ORDER. Addendum: 03/24/20 at 1105 by Lynnette Pizano CM ASIF GOLD: FOLLOWED UP WITH [facility] Addendum: 03/24/20 at 1105 by Lynnette Pizano CM ASIF GOLD: FOLLOWED UP WITH BROOKE AT [facility] REGARDING PATIENTS WHEEL CHAIR, SHE IS GOING TO HAVE REJI REACH OUT TO ME. Addendum: 03/24/20 at 1202 by Lynnette Pizano CM ASIF GOLD: RECEIVED A CALL BACK FROM REJI AT [employer] [phone]. HE IS HAVING A HARD TIME WITH GETTING MEDICARE TO APPROVE WHEEL CHAIR. Addendum: 03/24/20 at 1339 by Radha Smart CM LATE ENTRY FOR YESTERDAY: CONTACTED PATIENT'S DAUGHTER ZEYNEP PAN AT [phone] REGARDING THE CONTACT INFO FOR [employer]. SHE PROVIDED ME WITH YOAV'S NUMBER ([employer]) [phone]. 1330: CONTACTED YOAV AT [phone], NO ANSWER. LEFT MESSAGE. WILL FOLLOW UP. Addendum: 03/24/20 at 1450 by Lynnette Pizano CM DC MATERIALS SCHEDULER: CONTACTED PATIENTS [employer]OND[employer]URANCE [employer] THEY ARE NOT ABLE TO PROVIDE TRANSPORTATION. SPOKE TO PATIENTS DAUGHTER VONNIE PAN [phone] REGARDING TRANSPORTATION SHE IS GOING TO SPEAK TO HER BROTHER TO SEE IF HE IS ABLE TO BOILING HOUSE HAND THE PATIENT IF SHE IS DISCHARGED OVER THE WEEKEND. IF NOT I CONTACTED [employer] AND SPOKE TO ANDREINA THEY ARE ABLE TO PROVIDE TRANSPORT FOR $110.00. NOTIFIED PATIENTS DAUGHTER SHE WILL DISCUSS WITH HER BROTHER AND CALL ME BACK. Addendum: 03/24/20 at 1545 by Radha Smart CM PER DR. MEDRANO, HE WILL DC PATIENT TOMORROW. Addendum: 03/24/20 at 1656 by Lynnette Pizano CM ASIF MATERIALS SCHEDULER: SPOKE TO ZAMZAM [phone] AT [facility] TO NOTIFY THEM THAT PATIENT WILL BE DISCHARGED TOMORROW.
[2020-03-22] MEDS: INSULIN LISPRO SLIDING SCALE 100 UNITS/ML VIAL SUBQ PRN ×2 (12:31→20:13)
--- NOTE | 2020-03-22 12:40 | NUR ---
V/S: 98.1, 88, 18, 130/70, 95% RA FLACC-0. PT IS EATING LUNCH WITH TOTAL ASSIST. TOLERATING IVPB WITH NO ISSUES.
--- NOTE | 2020-03-22 12:54 | NUR ---
SOCIAL WORK NOTE: Patient's Orientation Unable To Assess Information Provided By VONNIE PAN - DAUGHTER/POA Comments SW WAS UNABLE TO MEET PATIENT AT BEDSIDE. SW CONTACTED PATIENT'S DAUGHTER, VONNIE PAN WHO STATED SHE WAS POA. DEMOND COMPLETED ASSESSMENT WITH VONNIE. Bridge Repair Crew Person, Realtionship and Phone Number LASHA PAN SON [phone] VONNIE PAN DAUGHTER/POA [phone] Healthcare Power of Surgery Scheduler No Does Patient Have a POLST No Identifying Problems No Social Work Triggers Is A Social Work Consult Needed No Mandate Report Filed No Explanation Of Identifying Problems PATIENT IS AN 80-YEAR-OLD FEMALE ADMITTED FOR LACTIC ACIDOSIS. PATIENT HAS PMHX OF CEREBROVASCULAR ACCIDE, DIABETES, AND HYPERTENSION. PATIENT WAS ADMITTED FROM THE [facility]. Admitted From [facility] Provider [facility] Pre-Admission Level Of Functioning Status Total Care Level Of Functioning Comment PER DAUGHTER, PATIENT RECEIVES TOTAL CARE WITH ADLS. Prior Resources/Services Used In Last 12 Months Board & Care Prior Resources/Service Comments PATIENT IS A RESIDENT AT THE [facility]. Prior DME Hospital Bed Wheelchair Dialysis Comments N/A Living Situation Asst'd Living/Board &[employer] Patient Had Caregiver No Home Support No Caregiver Issues Financial Issues No Known Financial Issue Referral To The Financial Counselor Needed No Factors/Needs No D/C Needs Identified Pt/Rep Participated In Discharge Plan Yes Patient/Family Agress With Discharge Plan Yes Discharge Plan Comments TENTATIVE DISCHARGE PLAN IS FOR PATIENT TO RETURN TO THE [facility]. DC Plan Status Initiated
--- NOTE | 2020-03-22 14:32 | NUR ---
RESTING IN BED WITH HOB ELEVATED. ALL NEEDS MET.
--- NOTE | 2020-03-22 16:35 | NUR ---
V/S: 96.9, 99, 18, 137/87, 96% RA PT IS IN [employer] SMILING AND WATCHING TV. BS 140 NO COVERAGE NEEDED.
--- NOTE | 2020-03-22 18:52 | NUR ---
COVID SWAB FOR PCR COLLECTED AND ROUTED TO LAB.
--- NOTE | 2020-03-22 19:10 | NUR ---
REPORT GIVEN TO PM RN FOR CONTINUITY OF CARE. PT IS STABLE IN NO DISTRESS.
--- NOTE | 2020-03-22 19:11 | NUR ---
RECEIVED BEDSIDE REPORT FROM DAY RN. PT LAYING IN BED APHASIC UNABLE TO ASSESS ORIENTATION. PT IS NOT ABLE TO COMMUNICATE. PT TRACK NURSES AND SMILING. PT HAS CONTRACTIONS TO UPPER EXTREMITIES AND IS BED BOUND. RESPIRATIONS ARE EQUAL AND UNLABORED ON ROOM AIR. LUNG SOUNDS CLEAR, ABD IS ROUND, SOFT AND NONTENDER. HAS SUPRAPUBIC CATH DRAINING CLEAR YELLOW URINE. ON DROPLET ISOLATION FOR R/O COVID SARS NEG, PCR JUST SENT TO LAB. POC DISCUSSED WITH PT. PT UNABLE TO VERBALIZED UNDERSTANDING. CALL LIGHT IS WITHIN REACH. SAFETY MEASURES IN PLACE. WILL CONTINUE WITH POC.
[2020-03-22 20:00] VITALS: BP 138/82
--- NOTE | 2020-03-22 20:12 | NUR ---
VSS, BLOOD SUGAR 237 ADMINISTERED INSULIN PER SLIDING SCALE, LAI MEDICATIONS GIVEN PER ORDERS, MED EDUCATION GIVEN PT UNABLE TO VERBALIZED UNDERSTANDING. ALL NEEDS MET. SAFETY MEASURES ARE IN PLACE. CALL LIGHT IS WITHIN REACH. WILL CONTINUE TO MONITOR.
--- NOTE | 2020-03-22 22:10 | NUR ---
PT IS SLEEPING COMFORTABLY IN BED WITH EYES CLOSED. CHEST RISE AND FALL NOTED. CALL LIGHT IS WITHIN REACH.
[2020-03-23] VITALS: BP 146/82
--- NOTE | 2020-03-23 | NUR ---
VSS. PT WAS REPOSITION FOR COMFORT. ALL SAFETY MEASURES ARE IN PLACE. CALL LIGHT IS WITHIN REACH. WILL CONTINUE TO MONITOR.
--- NOTE | 2020-03-23 02:10 | NUR ---
ROUND MADE. PT IS SLEEPING IN BED WITH EYES CLOSED. CHEST RISE AND FALL NOTED. NO S/S OF DISTRESS NOTED. SAFETY MEASURES ARE IN PLACE. WILL CONTINUE TO MONITOR.
[2020-03-23 04:00] VITALS: BP 167/73
--- NOTE | 2020-03-23 04:00 | NUR ---
VITAL SIGNS ARE WITHIN NORMAL LIMITS. PT SMILING DOES NOT APPEAR IN ANY DISTRESS. SAFETY MEASURES ARE IN PLACE. WILL CONTINUE TO MONITOR.
[2020-03-23 05:32] LABS: BASOPHILS # (AUTO) 0.1 K/uL (0.00-0.22); BASOPHILS % (AUTO) 0.7 % (0.0-2.0); EOSINOPHILS # (AUTO) 0.3 K/uL (0-0.4); EOSINOPHILS % (AUTO) 1.7 % (0.0-4.0); HEMATOCRIT 33.1 % (36-48); HEMOGLOBIN 10.6 g/dL (12.0-16.0); LYMPHOCYTES # (AUTO) 2.2 K/uL (2.5-16.5); LYMPHOCYTES % (AUTO) 14.3 % (20.5-51.1); MEAN CORPUSCULAR HEMOGLOBIN 27 pg (27-31); MEAN CORPUSCULAR HGB CONC 32 g/dL (33-37); MEAN CORPUSCULAR VOLUME 84.1 fL (80-94); MONOCYTES # (AUTO) 1.2 K/uL (0.8-1.0); MONOCYTES % (AUTO) 7.9 % (1.7-9.3); NEUTROPHILS # (AUTO) 11.5 K/uL (1.8-7.7); NEUTROPHILS % (AUTO) 75.4 % (42.2-75.2); PLATELET COUNT (AUTO) 429 K/uL (140-450); RED BLOOD CELL COUNT(AUTO) 3.93 MIL/uL (4.20-5.40); RED CELL DISTRIBUTION WIDTH 14.7 % (11.6-13.7); WHITE BLOOD COUNT (AUTO) 15.3 K/uL (4.8-10.8)
[2020-03-23] MEDS: PIPERACILLIN/TAZOBACTAM 2.25 GM in DEXTROSE 5% 50 ML IV SCH ×3 (05:42→22:18)
[2020-03-23] MEDS: LEVOTHYROXINE 0.1 MG TAB PO SCH (05:42)
[2020-03-23] MEDS: INSULIN LISPRO SLIDING SCALE 100 UNITS/ML VIAL SUBQ PRN ×3 (06:20→22:24)
[2020-03-23] MEDS: BLOOD GLUCOSE MONITORING 1 DEV DEV FS SCH ×4 (06:20→22:25)
[2020-03-23 06:22] LABS: ANION GAP 14.9 (8-16); CARBON DIOXIDE 24.1 mmol/L (21-32); CHLORIDE 105 mmol/L (98-107); CREATININE 0.7 mg/dL (0.6-1.3); GLUCOSE 171 mg/dL (74-106); SODIUM SERUM 140 mmol/L (136-145); UREA NITROGEN, BLOOD 9 mg/dL (7-18)
[2020-03-23] MEDS ORDERED: hydrALAZINE 20 MG/ML VIAL IVP SCH (07:30)
--- NOTE | 2020-03-23 07:30 | NUR ---
RECEIVED PATIENT FROM NIGHT NURSE. PATIENT IN BED, AWAKE, EYE OPENING. RESP EVEN AND UNLABORED ON ROOM AIR. NO ACUTE S/S OF DISTRESS AT THIS TIME. PATIENT APHASIC. RH 24G INFUSING NS. DROPLET PRECAUTION OBSERVED. FALL RISK NOTED. SAFETY MEASURES IN PLACE. WILL CONTINUE WITH PLAN OF CARE.
--- NOTE | 2020-03-23 07:33 | NUR ---
GAVE BEDSIDE REPORT TO DAY RN. PT ENDORSED IN STABLE CONDITION.
[2020-03-23 08:00] VITALS: BP 133/71
[2020-03-23 08:08] LABS: T4 (THYROXINE) 8.3 ug/dL (4.5-12.0)
[2020-03-23 08:37] LABS: MAGNESIUM 1.5 mg/dL (1.8-2.4); PHOSPHORUS 3.6 mg/dL (2.5-4.9)
[2020-03-23] MEDS: APIXABAN 2.5 MG TAB PO SCH ×2 (09:42→22:19)
[2020-03-23] MEDS: lisinopriL 10 MG TAB PO SCH (09:43)
[2020-03-23] MEDS: PARoxetine 20 MG TAB PO SCH (09:43)
[2020-03-23] MEDS: LORATADINE 10 MG TAB PO SCH (09:43)
[2020-03-23] MEDS: BACLOFEN 10 MG TAB PO SCH ×2 (09:44→22:19)
[2020-03-23] MEDS: MAGNESIUM OXIDE 400 MG TAB PO SCH (09:44)
[2020-03-23] MEDS: ATORVASTATIN 20 MG TAB PO SCH (09:44)
[2020-03-23] MEDS: MONTELUKAST SODIUM 10 MG TAB PO SCH (09:44)
[2020-03-23] MEDS: NACL 0.9% 1,000 ML IV SCH (09:45)
--- NOTE | 2020-03-23 09:45 | NUR ---
MORNING ROUTINE MEDICATIONS GIVEN. PATIENT IN BED AWAKE AND ALERT. EYE TRACKING. RESP EVEN AND UNLABORED ON ROOM AIR. NO NOTED ACUTE S/S DISTRESS. LUNGS CLEAR. NO FEVER OR VOMITING AT THIS TIME. BOWEL SOUNDS PRESENT. SKIN IS WARM TO TOUCH AND INTACT. SUPRAPUBIC CATH NOTED TO LEFT LOWER ABD, DRAINING YELLOW CLEAR URINE. UPPER ARMS CONTRACTURE NOTED. LOWER LEGS ON HEEL PROTECTORS. FALL PRECAUTION OBSERVED. DROPLET PRECAUTION IN PLACE. SAFETY MEASURES IN PLACE. WILL CONTINUE TO MONITOR.
[2020-03-23 12:00] VITALS: BP 149/77
--- NOTE | 2020-03-23 12:45 | NUR ---
BLOOD GLUCOSE 193. INSULIN GIVEN PER SLIDING SCALE. PATIENT AWAKE AND ALERT. NO NOTED ACUTE DISTRESS. NO FACIAL GRIMACE. PATIENT TURNED AND REPOSITIONED. PATIENT TOLERATED WELL. CALL LIGHT WITHIN REACH. PATIENT REFUSED TO EAT LUNCH. WILL CONTINUE TO MONITOR.
--- NOTE | 2020-03-23 15:35 | NUR ---
PATIENT SLEEPING IN BED. CHEST NOTED RISING. NO NOTED DISTRESS. CALL LIGHT WITHIN REACH. WILL CONTINUE TO MONITOR.
[2020-03-23 16:00] VITALS: BP 134/94
--- NOTE | 2020-03-23 17:00 | NUR ---
BLOOD GLUCOSE 153. PATIENT DID NOT EAT HER LUNCH SO NO INSULIN PROVIDED. RESP EVEN AND UNLABORED ON ROOM AIR. NO FACIAL GRIMACE. PATIENT IS COMFORTABLE IN BED. CALL LIGHT WITHIN REACH. WILL CONTINUE TO MONITOR.
--- NOTE | 2020-03-23 19:30 | NUR ---
OPENING NOTE PT IS NONVERBAL. REFUSED TO OPEN EYES WITH VERBAL OR PAIN STIMULI. LETHARGIC. STABLE VITAL SIGNS. NO PAIN NOTE. SUPRAPUBIC CATH IN PLACE. SURGICAL SITE COVERED WITH CLEAN, DRY DRESSING WITH NO INFLAMMATION OR REDNESS NOTED. URINE YELLOW, CLOUDY. SHIFT'S PRIORITY IS TO MONITOR FUNCTION OF SUPRAPUBIC, SIGNS AND SYMPTOMS OF INFECTION, ADMINISTER ANTIBIOTICS. BED IN LOW, CALL LIGHT IN REACH.
--- NOTE | 2020-03-23 19:45 | NUR ---
ENDORSED PATIENT TO NIGHT NURSE. PATIENT IN STABLE CONDITION.
[2020-03-24] VITALS: BP 134/94
--- NOTE | 2020-03-24 | NUR ---
ROUNDING PT IS SLEEPING. NO DISTRESS NOTED. CONTINUE TO MONITOR.
[2020-03-24] MEDS: PIPERACILLIN/TAZOBACTAM 2.25 GM in DEXTROSE 5% 50 ML IV SCH ×3 (06:35→21:20)
[2020-03-24] MEDS: LEVOTHYROXINE 0.1 MG TAB PO SCH (06:35)
[2020-03-24] MEDS: BLOOD GLUCOSE MONITORING 1 DEV DEV FS SCH ×4 (06:36→21:23)
[2020-03-24] MEDS: INSULIN LISPRO SLIDING SCALE 100 UNITS/ML VIAL SUBQ PRN ×4 (06:36→21:26)
--- NOTE | 2020-03-24 07:30 | NUR ---
RECEIVED PT FROM SLICING MACHINE OPERATOR RN, PT IS ASLEEP AND LYING ON THE BED WITH SAFETY AND FALL PRECAUTION IN PLACE, SIDE RAILS UP AND CALL LIGHT WITHIN REACH, IV LINE NOTED ON THE RT HAND G. 24 WITH IVF NS INFUSING AT 60ML/HR, INTACT , PT IS ON RA, NON-VERBAL, DNR CODE, NO SIGN OF DISTRESS NOTED AND WILL CONTINUE TO MONITOR PT.
[2020-03-24 08:00] VITALS: BP 145/82
--- NOTE | 2020-03-24 09:15 | NUR ---
PT WAS BEING FED BY INDUSTRIAL ROOF PLUMBER NOW, PT IS NOT OPENING HER MOUTH THAT MUCH. WILL CONTINUE TO BE MONITORED.
[2020-03-24 09:37] LABS: BASOPHILS # (AUTO) 0.1 K/uL (0.00-0.22); BASOPHILS % (AUTO) 0.5 % (0.0-2.0); EOSINOPHILS # (AUTO) 0.1 K/uL (0-0.4); EOSINOPHILS % (AUTO) 0.5 % (0.0-4.0); HEMATOCRIT 30.5 % (36-48); LYMPHOCYTES # (AUTO) 2.7 K/uL (2.5-16.5); LYMPHOCYTES % (AUTO) 22.9 % (20.5-51.1); MEAN CORPUSCULAR HEMOGLOBIN 28 pg (27-31); MEAN CORPUSCULAR HGB CONC 33 g/dL (33-37); MEAN CORPUSCULAR VOLUME 83.7 fL (80-94); MONOCYTES # (AUTO) 1.2 K/uL (0.8-1.0); MONOCYTES % (AUTO) 10.4 % (1.7-9.3); NEUTROPHILS # (AUTO) 7.9 K/uL (1.8-7.7); NEUTROPHILS % (AUTO) 65.7 % (42.2-75.2); PLATELET COUNT (AUTO) 358 K/uL (140-450); RED BLOOD CELL COUNT(AUTO) 3.64 MIL/uL (4.20-5.40)
[2020-03-24 09:58] LABS: ANION GAP 14.6 (8-16); CARBON DIOXIDE 24.4 mmol/L (21-32); CHLORIDE 105 mmol/L (98-107); CREATININE 0.9 mg/dL (0.6-1.3); GLUCOSE 159 mg/dL (74-106); SODIUM SERUM 140 mmol/L (136-145); UREA NITROGEN, BLOOD 8 mg/dL (7-18)
[2020-03-24] MEDS: NACL 0.9% 1,000 ML IV SCH ×2 (10:34→19:23)
[2020-03-24] MEDS: MONTELUKAST SODIUM 10 MG TAB PO SCH (10:34)
[2020-03-24] MEDS: ATORVASTATIN 20 MG TAB PO SCH (10:34)
[2020-03-24] MEDS: BACLOFEN 10 MG TAB PO SCH ×2 (10:35→21:20)
[2020-03-24] MEDS: lisinopriL 10 MG TAB PO SCH (10:35)
[2020-03-24] MEDS: PARoxetine 20 MG TAB PO SCH (10:36)
[2020-03-24] MEDS: LORATADINE 10 MG TAB PO SCH (10:36)
[2020-03-24] MEDS: APIXABAN 2.5 MG TAB PO SCH ×2 (10:40→21:28)
--- NOTE | 2020-03-24 10:40 | NUR ---
PT WAS GIVEN THE SCHEDULED AM MEDICATIONS, CRUSHED, MIXED WITH WATER AND VIA SYRINGE, TOLERATED, WILL MONITOR PT.
[2020-03-24] MEDS: MAGNESIUM OXIDE 400 MG TAB PO SCH (10:44)
--- NOTE | 2020-03-24 11:54 | NUR ---
PT WAS GIVEN INSULIN 4 UNITS ON THE LEFT UA FOR BLOOD GLUCOSE OF 243, WILL MONITOR PT.
--- NOTE | 2020-03-24 12:18 | NUR ---
PT WAS GIVEN THE SCHEDULED IVPB ZOSYN, WILL MONITOR PT.
--- NOTE | 2020-03-24 14:36 | NUR ---
ENDORSED PT TO SONIA STOUT FOR CONTINUITY OF CARE, PT IS STABLE AT THIS TIME.
--- NOTE | 2020-03-24 14:41 | NUR ---
RECEIVED BEDSIDE REPORT FROM [facility] NURSE CAMELIA. PT RESTING IN BED. FLACC 0. RESPIRATIONS EVEN AND UNLABORED WITH NO SOB OR RESPIRATORY DISTRESS. SKIN WARM AND DRY TO TOUCH. IV SITE IN R HAND 22G IS CLEAN, DRY, AND INTACT. WILL CONTINUE TO MONITOR
--- NOTE | 2020-03-24 15:02 | NUR ---
03/24/20 RD INITIAL ASSESSMENT COMPLETED PLEASE REFER TO NUTRITION ASSESSMENT UNDER CARE ACTIVITY FOR ESTIMATED NUTRITIONAL NEEDS. 1. RECOMMEND SWALLOW EVALUATION FOR DIET TEXTURE AND LIQUID CONSISTENCY 2. IF PATIENT PASSES ST EVAL, RECOMMEND GLUCERNA TID 3. IF FAILS ST EVAL, CONSIDER ENTERAL NUTRITION IF IT ALIGNS WITH PATIENT AND/OR FAMILYS WISHES 4. RD TO FOLLOW-UP 2-3 DAYS, HIGH RISK BRITTNEY MORLEY RD
[2020-03-24 16:00] VITALS: BP 141/58
--- NOTE | 2020-03-24 16:30 | NUR ---
PT BLOOD SUGAR IS 200. PRN INSULIN WILL BE ADMINISTERED PRESCRIBED PER MD ORDER. WILL CONTINUE TO MONITOR
--- NOTE | 2020-03-24 17:19 | NUR ---
ADMINISTERED PRN INSULIN PRESCRIBED PER MD ORDER. PT TOLERATED WELL. WILL CONTINUE TO MONITOR
--- NOTE | 2020-03-24 18:20 | NUR ---
*ST: Bedside Swallow Evaluation* Pt is 80 yo F BIBA 03/21/2020 c fever, vomitting, kidney infection s/p recent d/c from OSH 03/18/2020 for hematuria 2/2 chronic UTI. PMHx CVA c R-hemiparesis, depression, chronic UTI, DM, HTN. CXR 03/21 - low lung volumes c borderline cardiomegaly. Cleared with RN, Mimi, for BDSE. Per previous RNClotilde, pt ate 75% of MS/[place] Thick Liquids tray without significant difficulty. Pt seen bedside, slow to awaken via verbal and tactile stim. Noted full dentition. Pt did not follow commands. No phonation emitted/elicited. Unknown PLOF. 2oz apple sauce, 4oz canned [place] pineapple, ~3oz thin liquids by tsp, cup and straw given. Pt had fair tsp sipping and stripping, fair cup sip thin by MOLDER MACHINE assist, inconsistent straw sip thin, slow but fair and effective mastication, fair oral clearing, slight delay swallow trigger, fair laryngeal excursion, no significant coughing nor throat clearing. POC d/w pt's RN. P: Rec Mechanical Soft/Thin Liquids by 1/2 tsp or cup, feed-assist slowly Follow safe swallow strategies, oral care, aspiration precautions Nsg to monitor and notify MOLDER MACHINE of changes in status -Dawna Aguirre MA, JERALD-MOLDER MACHINE Addendum: 03/24/[address] Amended: Links added.
--- NOTE | 2020-03-24 18:45 | NUR ---
HOURLY ROUNDING. PT RESTING IN BED. FLACC 0. RESPIRATIONS EVEN AND UNLABORED WITH NO SOB OR RESPIRATORY DISTRESS. SKIN WARM AND DRY TO TOUCH. WILL CONTINUE TO MONITO
--- NOTE | 2020-03-24 19:23 | NUR ---
ENDORSED AT BEDSIDE FOR CONTINUITY OF CARE. PT IS STABLE
--- NOTE | 2020-03-24 19:24 | NUR ---
RECEIVED REPORT FROM DAY SHIFT NURSE. PT IN BED RESTING WITH HOB SLIGHTLY ELEVATED. PT DNR. PT WITH SPONTANEOUS EYE OPENING, NON-VERBAL. RESPIRATIONS EVEN AND UNLABORED TO ROOM AIR. ABDOMEN IS SOFT AND NON-TENDER. SKIN IS WARM, DRY, AND INTACT. NO EDEMA NOTED. PT WITH SUPRAPUBIC CATHETER IN PLACE DRAINING WELL. IV ACCES ON RIGHT HAND G24 PATENT AND INTACT, IVF INFUSING WELL. NO S/SX OF DISTRESS NOTED. FLACC 0. PT KEPT COMFORTABLE. SAFETY MEASURES IN PLACE. BED IN LOW POSITION, SIDE RAILS RAISED, BED ALARM ON. WILL CONTINUE TO MONITOR.
[2020-03-24] MEDS: METOPROLOL 25 MG TAB PO SCH (21:20)
--- NOTE | 2020-03-24 21:30 | NUR ---
VS STABLE. SCHEDULED MEDS GIVEN. BLOOD SUGAR 218, INSULIN COVERAGE GIVEN ORDERED. PT TURNED TO SIDE. PT NOT IN DISTRESS. SAFETY MEASURES IN PLACE. WILL CONTINUE TO MONITOR.
--- NOTE | 2020-03-24 22:30 | NUR ---
ROUNDS MADE. PT IN BED. FLACC 0. PT NOT IN DISTRESS. PT TURNED TO SIDE. PT KEPT COMFORTABLE. SAFETY MEASURES IN PLACE. WILL CONTINUE TO MONITOR.
--- NOTE | 2020-03-25 00:11 | NUR ---
ROUNDS MADE. PT ASLEEP. PT TURNED TO SIDE, KEPT COMFORTABLE. SAFETY MEASURES INPLACE WILL CONTINUE TO MONITOR.
--- NOTE | 2020-03-25 02:20 | NUR ---
PERINEAL CARE DONE WITH INFRASTRUCTURE ADMINISTRATOR. PT TOLERATED WELL. PT TURNED TO SIDE AFTER. OFFERED SOME WATER. PT KEPT COMFORTABLE. SAFETY MEASURES IN PLACE. WILL CONTINUE TO MONITOR.
[2020-03-25 04:00] VITALS: BP 159/81
--- NOTE | 2020-03-25 04:20 | NUR ---
VS STABLE. PT RESTING IN BED, TURNED TO SIDE. PT KEPT COMFORTABLE. OFFERED WATER. SAFETY MEASURES IN PLACE. WILL CONTINUE TO MONITOR.
[2020-03-25] MEDS: PIPERACILLIN/TAZOBACTAM 2.25 GM in DEXTROSE 5% 50 ML IV SCH ×2 (04:28→13:44)
[2020-03-25 06:03] LABS: BASOPHILS # (AUTO) 0.1 K/uL (0.00-0.22); BASOPHILS % (AUTO) 0.7 % (0.0-2.0); EOSINOPHILS # (AUTO) 0.2 K/uL (0-0.4); EOSINOPHILS % (AUTO) 1.7 % (0.0-4.0); HEMOGLOBIN 10.5 g/dL (12.0-16.0); LYMPHOCYTES # (AUTO) 3.4 K/uL (2.5-16.5); LYMPHOCYTES % (AUTO) 28.1 % (20.5-51.1); MEAN CORPUSCULAR HEMOGLOBIN 27 pg (27-31); MEAN CORPUSCULAR HGB CONC 32 g/dL (33-37); MEAN CORPUSCULAR VOLUME 83.8 fL (80-94); MONOCYTES # (AUTO) 1.1 K/uL (0.8-1.0); MONOCYTES % (AUTO) 9.1 % (1.7-9.3); NEUTROPHILS # (AUTO) 7.3 K/uL (1.8-7.7); NEUTROPHILS % (AUTO) 60.4 % (42.2-75.2); PLATELET COUNT (AUTO) 385 K/uL (140-450); RED BLOOD CELL COUNT(AUTO) 3.94 MIL/uL (4.20-5.40); RED CELL DISTRIBUTION WIDTH 15.3 % (11.6-13.7); WHITE BLOOD COUNT (AUTO) 12.1 K/uL (4.8-10.8)
[2020-03-25] MEDS: LEVOTHYROXINE 0.1 MG TAB PO SCH (06:30)
[2020-03-25] MEDS: BLOOD GLUCOSE MONITORING 1 DEV DEV FS SCH ×2 (06:33→11:59)
[2020-03-25] MEDS: INSULIN LISPRO SLIDING SCALE 100 UNITS/ML VIAL SUBQ PRN ×2 (06:35→13:44)
[2020-03-25 06:36] LABS: CARBON DIOXIDE 23.1 mmol/L (21-32); CHLORIDE 104 mmol/L (98-107); CREATININE 0.7 mg/dL (0.6-1.3); GLUCOSE 174 mg/dL (74-106); POTASSIUM 4.1 mmol/L (3.5-5.1); SODIUM SERUM 138 mmol/L (136-145); UREA NITROGEN, BLOOD 7 mg/dL (7-18)
--- NOTE | 2020-03-25 06:44 | NUR ---
BLOOD SUGAR 185, INSULIN COVERAGE GIVEN ORDERED.
--- NOTE | 2020-03-25 07:14 | NUR ---
ENDORSED TO DAY SHIFT NURSE FOR CONTINUITY OF CARE
--- NOTE | 2020-03-25 07:20 | NUR ---
REC'D REPORT FROM TWINE REELING MACHINE OPERATOR, PT SLEEPING, IV INFUSING AT 60ML/HR. BED LOWEST POSITION. WILL CONTINUE TO MONITOR.
[2020-03-25] MEDS: ATORVASTATIN 20 MG TAB PO SCH (09:17)
[2020-03-25] MEDS: PARoxetine 20 MG TAB PO SCH (09:17)
[2020-03-25] MEDS: BACLOFEN 10 MG TAB PO SCH (09:17)
[2020-03-25] MEDS: METOPROLOL 25 MG TAB PO SCH (09:18)
[2020-03-25] MEDS: LORATADINE 10 MG TAB PO SCH (09:19)
[2020-03-25] MEDS: APIXABAN 2.5 MG TAB PO SCH (09:19)
[2020-03-25] MEDS: MONTELUKAST SODIUM 10 MG TAB PO SCH (09:19)
[2020-03-25] MEDS: MAGNESIUM OXIDE 400 MG TAB PO SCH (09:19)
[2020-03-25] MEDS: lisinopriL 10 MG TAB PO SCH (09:20)
--- NOTE | 2020-03-25 09:20 | NUR ---
SCHEDULED MEDICATIONS GIVEN AND TOLERATED WELL. PT ATE BREAKFAST AND TOLERATED WELL. FALL PRECAUTIONS AND ASPIRATIONS PRECAUTIONS IN PLACE. NO S/S OF RESPIRATORY DISTRESS OR DISCOMFORT NOTED AT THIS TIME. WILL CONTINUE TO MONITOR.
[2020-03-25] MEDS ORDERED: LISI-420 PO (10:41)
[2020-03-25] MEDS ORDERED: METO25TA PO (10:41)
[2020-03-25] MEDS ORDERED: METF1000 PO (10:41)
[2020-03-25] MEDS ORDERED: AMOX-999 PO (10:45)
--- NOTE | 2020-03-25 11:30 | NUR ---
BLOOD GLUCOSE 199- WILL ADMINISTER INSULIN COVERAGE.
[2020-03-25] MEDS: NACL 0.9% 1,000 ML IV SCH (11:45)
[2020-03-25 11:49] VITALS: BP 157/82
--- NOTE | 2020-03-25 13:44 | NUR ---
INSULIN COVERAGE GIVEN AND TOLERATED WELL. SCHEDULED MEDICATION ZOSYN GIVEN AND TOLERATED WELL. NO S/S OF RESPIRATORY DISTRESS OR DISCOMFORT NOTED AT THIS TIME. WILL CONTINUE TO MONITOR.
--- NOTE | 2020-03-25 14:20 | NUR ---
DISCHARGE PAPERWORK WERE GIVEN. PT UNABLE TO SIGN. IV SITE REMOVED WITH CANNULA INTACT. DR. PAN ARRIVED TO TAKE PATIENT BACK TO HER HOME. HE IS AWARE OF RX AND HAS ALREADY BEEN FILLED. CHRISTIE RIZVI AND GIRISH EVANS ASSISTED WITH PUTTING PT IN A WHEELCHAIR AND TAKEN TO FRONT LOBBY WHERE DAUGHTER AWAITING. DR. PAN TRANSFERRED PT TO CAR AND PUT HER SEATBELT. PT IN STABLE CONDITIONS AT THIS TIME.
[2020-03-25] MEDS ORDERED: METOPROLOL 25 MG TAB PO SCH (21:00)
== END 2020-03-25 14:20 | disposition home or self-care (01) | DRG 871 ==
LOC: MED 21:53 → EEVIPCON 03-22 00:16 → MTU 03-22 00:16 → MMU 03-22 00:17
PROVIDERS: ADMIT Emergency Medicine; ATTEND Emergency Medicine
PROC: 0T9B70Z Drainage of Bladder with Drainage Device, Via Natural or Artificial Opening (ICD-10-PCS; principal; 2020-03-22)
DX: A41.9 Sepsis, unspecified organism (principal); G93.41 Metabolic encephalopathy; N39.0 Urinary tract infection, site not specified; I69.351 Hemiplegia and hemiparesis following cerebral infarction affecting right dominant side; Z20.828 Contact with and (suspected) exposure to other viral communicable diseases; Z88.2 Allergy status to sulfonamides; E11.9 Type 2 diabetes mellitus without complications; I10 Essential (primary) hypertension; F32.9 Major depressive disorder, single episode, unspecified; R33.9 Retention of urine, unspecified; N13.9 Obstructive and reflux uropathy, unspecified; Z98.891 History of uterine scar from previous surgery
CPT/HCPCS: 36415; 71045; 76770; 80048; 80053; 81001; 82948; 83036; 83605; 83690; 83735; 83880; 84100; 84436; 84439; 84443; 84479; 84484; 85025; 85610; 85730; 87040; 87081; 87086; 92610; 93005; 96360; 96361; 99291; J0360; J1956; J2543; J7030; J7060; U0003